=== PATIENT | female | born 1975 | race Hispanic/Latino ===

== ENCOUNTER 2016-08-08 06:10 | Emergency (ER) | payer OTHER ==
[2016-08-08 06:10] VITALS: BMI 40.7
[2016-08-08] MEDS ORDERED: guaiFENesin 200 mg/10 ml Syrup UD PO STA (07:06)
[2016-08-08] MEDS ORDERED: Sodium Chloride 0.9% 500 ML IV STA (07:07)
--- NOTE | 2016-08-08 07:12 | ED PDOC ---
Arrival/HPI - General Chief Complaint: Flu-like Symptoms Time Seen by Provider: 08/08/16 07:00 Historian: Patient - History of Present Illness Narrative History of Present Illness (Text): 08/08/16 07:09 A 40 year old female, whose past medical history includes hypertension, presents to the emergency department complaining of a cough and sore throat since last night. Patient took Robitussin and Tylenol, with no relief. Patient reports dry heaves and one episode of posttussive vomiting. Patietn denies any fever, chills, diarrhea, abdominal pain, chest pain, shortness of breath or any other complaints. PMD: Dr. Garcia Time/Duration: Other (Last night) Symptom Course: Unchanged Quality: Other Context: Home Past Medical History - Provider Review Nursing Documentation Reviewed: Yes - Infectious Disease Hx of Infectious Diseases: None - Tetanus Immunization Tetanus Immunization: Unknown - Cardiac Hx Hypertension: Yes Hx Pacemaker: No - Neurological Hx Paralysis: No - Hematological/Oncological Hx Blood Transfusions: Yes (1995) Hx Blood Transfusion Reaction: No - Musculoskeletal/Rheumatological Hx Musculoskeletal Disorders: No - Genitourinary/Gynecological Other/Comment: HPV - Psychiatric Hx Anxiety: Yes Hx Depression: No Hx Substance Use: No - Surgical History Other/Comment: ectopic -right fallopian tube removal - Anesthesia Hx Anesthesia: Yes Hx Anesthesia Reactions: No - Suicidal Assessment Feels Threatened In Home Enviroment: No Family/Social History - Physician Review Nursing Documentation Reviewed: Yes Family/Social History: No Known Family HX Smoking Status: Never Smoked Hx Alcohol Use: No Hx Substance Use: No Hx Substance Use Treatment: No Allergies/Home Meds Allergies/Adverse Reactions: Allergies house dust Allergy (Verified 08/08/16 06:22) CONGESTION pollen extracts Allergy (Verified 08/08/16 06:22) CONGESTION Review of Systems - Physician Review All systems were reviewed & negative as marked: Yes - Review of Systems Constitutional: absent: Fevers, Night Sweats ENT: Sore Throat Respiratory: Cough. absent: SOB Cardiovascular: absent: Chest Pain Gastrointestinal: Vomiting (1 episode of posttussive vomiting), Other (dry heaves). absent: Abdominal Pain, Diarrhea Physical Exam Vital Signs Reviewed: Yes Vital Signs Temp Pulse Resp BP Pulse Ox 08/08/16 08:00 99.2 F 72 18 114/76 100 08/08/16 06:22 98.4 F 89 18 141/89 99 Temperature: Afebrile Blood Pressure: Normal Pulse: Regular Respiratory Rate: Normal Appearance: Positive for: Well-Appearing, Non-Toxic, Comfortable Pain Distress: None Mental Status: Positive for: Alert and Oriented X 3 - Systems Exam Head: Present: Atraumatic, Normocephalic Pupils: Present: PERRL Extroacular Muscles: Present: EOMI Conjunctiva: Present: Normal Mouth: Present: Moist Mucous Membranes Pharnyx: Present: Normal. No: ERYTHEMA, EXUDATE, TONSILS ENLARGED, Peritonsilar Swelling, Uvular Deviation, Muffled/Hoarse Voice, Strider, Soft Palate/Uvular Edema Neck: Present: Normal Range of Motion. No: Lymphadenopathy Respiratory/Chest: Present: Clear to Auscultation, Good Air Exchange. No: Respiratory Distress, Accessory Muscle Use Cardiovascular: Present: Regular Rate and Rhythm, Normal S1, S2. No: Murmurs Abdomen: Present: Normal Bowel Sounds. No: Tenderness, Distention, Peritoneal Signs Upper Extremity: Present: Normal Inspection. No: Cyanosis, Edema Lower Extremity: Present: Normal Inspection. No: Edema Neurological: Present: GCS=15, CN II-XII Intact, Speech Normal Skin: Present: Warm, Dry, Normal Color. No: Rashes Psychiatric: Present: Alert, Oriented x 3, Normal Insight, Normal Concentration Medical Decision Making ED Course and Treatment: 08/08/16 07:09 Impression: A 40 year old female with cough, sore throat and dry heaves. Differential Diagnosis included but are not limited to: Bronchitis vs. URI, rule out PNA vs. Dehydration Plan: -- Chest xray -- Labs -- Robitussin, Zofran and IV fluids -- Reassess and disposition Progress Notes: Report Date : 08/08/2016 08:50:18 Procedure: Chest xray Dictator : Yasmeen Hernandez MD IMPRESSION: No active pulmonary disease. 08/08/16 10:11 On re-evaluation, patient feels better, states her symptoms have resolved and is in no acute distress. I have discussed the results and plan with the patient , who expresses understanding. Patient in agreement with plan to be discharged home. Patient is stable for discharge. Patient was instructed to follow up with physician or return if symptoms worsen or new concerning symptoms arise. - Lab Interpretations Lab Results: 08/08/16 09:50 06/15/17 07:07 Lab Results 08/08/16 09:50: WBC 10.1, RBC 4.10, Hgb 12.5, Hct 36.1, MCV 88.0, MCH 30.5, MCHC 34.6, RDW 12.3, Plt Count 240, MPV 8.5, Gran % 80.8 H, Lymph % (Auto) 12.4 L, [place] % (Auto) 6.1 H, Eos % (Auto) 0.6 L, Baso % (Auto) 0.1, Gran # 8.19 H, Lymph # 1.3, [place] # 0.6, Eos # 0.1, Baso # 0.01 08/08/16 07:07: Sodium 140, Potassium 4.0, Chloride 107, Carbon Dioxide 26, Anion Gap 11, BUN 12, Creatinine 0.8, Est GFR ( Amer) > 60, Est GFR (Non- Af Amer) > 60, Random Glucose 111 H, Calcium 8.7, Magnesium 1.8 I have reviewed the lab results: Yes - RAD Interpretation Radiology Orders: 08/08/16 07:06 CHEST TWO VIEWS (PA/LAT) [RAD] Stat - Medication Orders Current Medication Orders: Discontinued Medications Guaifenesin (Robitussin) 200 mg PO STAT STA Stop: 08/08/16 07:07 Last Admin: 08/08/16 07:12 Dose: 200 mg Sodium Chloride (Sodium Chloride 0.9%) 500 mls @ 999 mls/hr IV .Q31M STA Stop: 08/08/16 07:37 Last Admin: 08/08/16 07:12 Dose: 999 mls/hr Ketorolac Tromethamine (Toradol) 30 mg IVP STAT STA Stop: 08/08/16 09:56 Last Admin: 08/08/16 10:18 Dose: 30 mg Ondansetron HCl (Zofran Inj) 4 mg IVP STAT STA Stop: 08/08/16 07:07 Last Admin: 08/08/16 07:12 Dose: 4 mg - Scribe Statement The provider has reviewed the documentation as recorded by the Alieibadis Lind Provider Scribe Attestation: All medical record entries made by the Scribe were at my direction and personally dictated by me. I have reviewed the chart and agree that the record accurately reflects my personal performance of the history, physical exam, medical decision making, and the department course for this patient. I have also personally directed, reviewed, and agree with the discharge instructions and disposition. Disposition/Present on Arrival - Present on Arrival Any Indicators Present on Arrival: No History of DVT/PE: No History of Uncontrolled Diabetes: No Urinary Catheter: No History of Decub. Ulcer: No History Surgical Site Infection Following: None - Disposition Have Diagnosis and Disposition been Completed?: Yes Diagnosis: Acute pharyngitis, Bronchitis Disposition: HOME/ ROUTINE Disposition Time: 10:11 Patient Plan: Discharge Patient Problems: Current Active Problems Problem Status Onset Acute pharyngitis Acute Bronchitis Acute Condition: IMPROVED Discharge Instructions (ExitCare): Pharyngitis (ED), Acute Bronchitis (ED) Additional Instructions: Ms Kenneyd, thank you for letting us take care of you today. Your provider was Dr. Andersen. You were treated for Bronchitis, Pharyngitis. The emergency medical care you received today was directed at your acute symptoms. If you were prescribed any medication, please fill it and take as directed. It may take several days for your symptoms to resolve. Return to the Emergency Department if your symptoms worsen, do not improve, or if you have any other problems. Please contact your doctor or call one of the physicians/clinics you have been referred to that are listed on the Patient Visit Information form that is included in your discharge packet. Bring any paperwork you were given at discharge with you along with any medications you are taking to your follow up visit. Our treatment cannot replace ongoing medical care by a primary care provider (PCP) outside of the emergency department. Thank you for allowing the [facility] team to be part of your care today. If you had an X-Ray or CT scan: A Radiologist will review the ED reading if any change in treatment is needed we will contact you. If you had a blood, urine, or wound culture: It will take several days for the results, if any change in treatment is needed we will contact you. If you had an STI test: It will take 48 hours for the results. Please call after 1 week if you have not heard back. Prescriptions: guaiFENesin [Robitussin] 200 mg PO Q8 PRN #1 bottle PRN Reason: Cough Naproxen 500 mg PO BID PRN #30 tab PRN Reason: Pain, Moderate (4-7) Referrals: Jas Garcia MD [Primary Care Provider] - Follow up with primary Forms: [employer] ([place] Citizen), WORK NOTE
--- NOTE | 2016-08-08 08:51 | RAD ---
HISTORY: Cough r/o pna COMPARISON: 04/09/2013 TECHNIQUE: Chest PA and lateral FINDINGS: LUNGS: The lungs are well inflated and clear. There is linear atelectasis/scar in the left lower lobe. PLEURA: No significant pleural effusion identified. No pneumothorax apparent. CARDIOVASCULAR: Normal. OSSEOUS STRUCTURES: No significant abnormalities. VISUALIZED UPPER ABDOMEN: Normal. OTHER FINDINGS: None. IMPRESSION: No active pulmonary disease.
[2016-08-08 09:55] LABS: ADD MANUAL DIFF? NO; BASO # 0.01 K/mm3 (0.0-2.0); BASO % 0.1 % (0.0-3.0); EOS # 0.1 (0.0-0.7); EOS % 0.6 % (1.5-5.0); GRAN # 8.19 (1.4-6.5); GRAN % 80.8 % (50.0-68.0); HEMATOCRIT 36.1 % (36.0-48.0); LYMPH # 1.3 (1.2-3.4); LYMPH % 12.4 % (22.0-35.0); MEAN CORPUSCULAR HEMOGLOBIN 30.5 pg (25.0-35.0); MEAN CORPUSCULAR HGB CONC 34.6 g/dl (31.0-37.0); MEAN PLATELET VOLUME 8.5 fl (7.0-11.0); MONO # 0.6 (0.1-0.6); MONO % 6.1 % (1.0-6.0); PLATELET COUNT 240 10^3/uL (120.0-450.0); RED CELL DISTRIBUTION WIDTH 12.3 % (11.5-14.5); WHITE BLOOD COUNT 10.1 10^3/ul (4.5-11.0)
[2016-08-08 10:03] LABS: BLOOD UREA NITROGEN 12 mg/dL (7-21); CALCIUM 8.7 mg/dL (8.4-10.5); CARBON DIOXIDE 26 mmol/L (21-33); CHLORIDE 107 mmol/L (98-107); GFR AFRICAN-AMERICAN > 60; GLUCOSE,RANDOM 111 mg/dL (70-110); MAGNESIUM 1.8 mg/dL (1.7-2.2); SODIUM 140 mmol/L (132-148)
[2016-08-08 12:01] VITALS: O2SAT 99
[2016-08-08 12:02] VITALS: BP 143/76; PULSE 86; RESP 18; TEMP 99.3
== END 2016-08-08 12:08 | disposition home or self-care (01) ==
LOC: ED 06:10
DX: J02.9 Acute pharyngitis, unspecified (principal); J20.9 Acute bronchitis, unspecified
CPT/HCPCS: 71020; 80048; 83735; 85025; 96374; 96375; 99285; J1885; J2405; J7040

== ENCOUNTER 2017-05-19 17:17 | Emergency (ER) | payer BC, OTHER ==
[2017-05-19 17:25] VITALS: BMI 38.9
[2017-05-19 17:38] VITALS: RESP 18; TEMP 98.4; O2SAT 100
[2017-05-19] MEDS ORDERED: Albuterol 0.083% Inhal Sol (2.5 mg/3 mL) UD INH STA ×2 (17:57→18:35)
--- NOTE | 2017-05-19 18:04 | ED PDOC ---
Arrival/HPI - General Chief Complaint: Flu-like Symptoms Time Seen by Provider: 05/19/17 17:45 Historian: Patient - History of Present Illness Narrative History of Present Illness (Text): 05/19/17 17:59 41yo female with no PMhx present with 3days history of yellow productive cough, bodyaches and chest pain with cough. states she was around a colleague that was sick . she denies sore throat, nasal congestion, fever, chills, travel, Past Medical History - Provider Review Nursing Documentation Reviewed: Yes - Infectious Disease Hx of Infectious Diseases: None - Tetanus Immunization Tetanus Immunization: Unknown - Cardiac Hx Hypertension: Yes Hx Pacemaker: No - Pulmonary Hx Respiratory Disorders: No - Neurological Hx Paralysis: No - Endocrine/Metabolic Hx Endocrine Disorders: No - Hematological/Oncological Hx Blood Transfusions: Yes (1995) Hx Blood Transfusion Reaction: No - Musculoskeletal/Rheumatological Hx Musculoskeletal Disorders: No - Genitourinary/Gynecological Other/Comment: HPV - Psychiatric Hx Anxiety: Yes Hx Depression: No Hx Substance Use: No - Surgical History Other/Comment: ectopic -right fallopian tube removal - Anesthesia Hx Anesthesia: Yes Hx Anesthesia Reactions: No - Suicidal Assessment Feels Threatened In Home Enviroment: No Family/Social History - Physician Review Nursing Documentation Reviewed: Yes Family/Social History: Unknown Family HX Smoking Status: Never Smoked Hx Alcohol Use: No Hx Substance Use: No Hx Substance Use Treatment: No Allergies/Home Meds Allergies/Adverse Reactions: Allergies house dust Allergy (Verified 05/19/17 17:25) CONGESTION pollen extracts Allergy (Verified 05/19/17 17:25) CONGESTION Review of Systems - Physician Review All systems were reviewed & negative as marked: Yes - Review of Systems Constitutional: Normal Eyes: Normal ENT: Normal Respiratory: Normal Cardiovascular: Normal Gastrointestinal: Normal Genitourinary Female: Normal Musculoskeletal: Normal Skin: Normal Neurological: Normal Endocrine: Normal Hemo/Lymphatic: Normal Psychiatric: Normal Physical Exam Vital Signs Reviewed: Yes Vital Signs Temp Pulse Resp BP Pulse Ox 05/19/17 20:43 86 18 128/75 100 05/19/17 17:27 98.4 F 91 H 18 125/87 100 Temperature: Afebrile Blood Pressure: Normal Pulse: Regular Respiratory Rate: Normal Appearance: Positive for: Well-Appearing, Non-Toxic, Comfortable Pain Distress: None Mental Status: Positive for: Alert and Oriented X 3 - Systems Exam Head: Present: Atraumatic, Normocephalic Pupils: Present: PERRL Extroacular Muscles: Present: EOMI Conjunctiva: Present: Normal Mouth: Present: Moist Mucous Membranes Neck: Present: Normal Range of Motion Respiratory/Chest: Present: Clear to Auscultation, Good Air Exchange. No: Respiratory Distress, Accessory Muscle Use, Wheezes, Decreased Breath Sounds, Rales, Retracting, Rhonchi, Tender to Palpation Cardiovascular: Present: Regular Rate and Rhythm, Normal S1, S2. No: Murmurs Abdomen: Present: Normal Bowel Sounds. No: Tenderness, Distention, Peritoneal Signs Back: Present: Normal Inspection Upper Extremity: Present: Normal Inspection. No: Cyanosis, Edema Lower Extremity: Present: Normal Inspection. No: Edema Neurological: Present: GCS=15, CN II-XII Intact, Speech Normal Skin: Present: Warm, Dry, Normal Color. No: Rashes Psychiatric: Present: Alert, Oriented x 3, Normal Insight, Normal Concentration Medical Decision Making ED Course and Treatment: 05/20/17 01:22 PT was hemodynamically stable in ED. Her lung exam was benign. CXR NAD Rapid flu and strep was both negative Result was DW the pt and she was DC home with Zpack, albuterol and prometh with codeine. Referred to her PMD. - Lab Interpretations Lab Results: Lab Results 05/19/17 18:10: Influenza Typ A,B (EIA) Negative for flu a/b, Grp A Beta Strep Ag Negative - RAD Interpretation Radiology Orders: 05/19/17 17:45 CHEST TWO VIEWS (PA/LAT) [RAD] Stat - Medication Orders Current Medication Orders: Discontinued Medications Acetaminophen (Tylenol 325mg Tab) 975 mg PO STAT STA Stop: 05/19/17 17:57 Last Admin: 05/19/17 18:13 Dose: 975 mg Re-Assess: PARISA Pain/Vitals Document 05/19/17 19:13 HI (Rec: 05/19/17 19:49 HI [id number]) Pain Reassessment Is This A Pain ReAssessment? Yes Sleep Is patient sleeping during reassessment? Yes Albuterol Sulfate (Albuterol 0.083% Inhal Ángela (2.5 Mg/3 Ml) Ud) 2.5 mg INH STAT STA Stop: 05/19/17 17:58 Last Admin: 05/19/17 18:13 Dose: 2.5 mg Albuterol Sulfate (Albuterol 0.083% Inhal Ángela (2.5 Mg/3 Ml) Ud) 2.5 mg INH STAT STA Stop: 05/19/17 18:36 Last Admin: 05/19/17 19:49 Dose: 2.5 mg Azithromycin (Zithromax) 500 mg PO STAT STA PRN Reason: Protocol Stop: 05/19/17 19:25 Last Admin: 05/19/17 19:49 Dose: 500 mg Promethazine HCl/Dextromethorphan (Phenergan Dm Syrup) 5 ml PO Q6H STA Stop: 05/19/17 19:26 Last Admin: 05/19/17 19:49 Dose: 5 ml Disposition/Present on Arrival - Present on Arrival Any Indicators Present on Arrival: No History of DVT/PE: No History of Uncontrolled Diabetes: No Urinary Catheter: No History of Decub. Ulcer: No History Surgical Site Infection Following: None - Disposition Have Diagnosis and Disposition been Completed?: Yes Diagnosis: URI (upper respiratory infection) Disposition: HOME/ ROUTINE Disposition Time: 19:30 Patient Plan: Discharge Condition: STABLE Discharge Instructions (ExitCare): Viral Upper Respiratory Infection, Adult (DC ) Additional Instructions: Take medication as directed Follow up with your Doctor Return to ED for any new or worsening symptoms Prescriptions: Albuterol HFA [Ventolin HFA 90 mcg/actuation (8 g)] 2 puff IH [id number] #1 puff Azithromycin [Zithromax] 250 mg PO DAILY #4 tab Promethazine HCl/Codeine [Prometh-Codein 6.25-10 mg/5 ml] 5 ml PO Q6 #100 syrup Referrals: Jas Garcia MD [Primary Care Provider] - Follow up with primary Forms: [employer] ([place]), WORK NOTE
[2017-05-19 18:53] LABS: INFLUENZA A B NEGATIVE FOR FLU A/B (NEGATIVE)
[2017-05-19] MEDS ORDERED: Promethazine DM 6.25 mg-15 mg/5 ml Syrup PO STA (19:25)
[2017-05-19 20:48] VITALS: BP 128/75; PULSE 86
--- NOTE | 2017-05-20 08:24 | RAD ---
HISTORY: cough COMPARISON: 08/08/2016 TECHNIQUE: Chest PA and lateral FINDINGS: LUNGS: No active pulmonary disease. PLEURA: No significant pleural effusion identified. No pneumothorax apparent. CARDIOVASCULAR: Normal. OSSEOUS STRUCTURES: No significant abnormalities. VISUALIZED UPPER ABDOMEN: Normal. OTHER FINDINGS: None. IMPRESSION: No active disease.
== END 2017-05-19 20:10 | disposition home or self-care (01) ==
LOC: ED 17:17
DX: J06.9 Acute upper respiratory infection, unspecified (principal)

== ENCOUNTER 2017-11-21 21:02 | Emergency (ER) | payer OTHER ==
--- NOTE | 2017-11-21 21:19 | ED PDOC ---
Arrival/HPI - General Time Seen by Provider: 11/21/17 21:03 Historian: Patient - History of Present Illness Narrative History of Present Illness (Text): 11/21/17 21:18 Rosa Kennedy is a 42 year old female, whose past medical history includes hypertension, who presents to the Emergency Department complaining of pain to heel/plantar aspect of her left foot, radiating at times up to her left calf and posterior thigh. Patient was concerned due to her past history of DVT during and came in for further evaluation. Patient also complains of occasional cough. Patient denies any trauma, fever, chills, chest pain, shortness of breath, nausea, headache, dizziness, or any other complaints. Symptom Onset: Gradual Symptom Course: Unchanged Activities at Onset: Light Context: Home Past Medical History - Provider Review Nursing Documentation Reviewed: Yes - Infectious Disease Hx of Infectious Diseases: None - Tetanus Immunization Tetanus Immunization: Unknown - Cardiac Hx Hypertension: Yes Hx Pacemaker: No - Pulmonary Hx Respiratory Disorders: No - Neurological Hx Paralysis: No - Endocrine/Metabolic Hx Endocrine Disorders: No - Hematological/Oncological Hx Blood Transfusions: Yes (1995) Hx Blood Transfusion Reaction: No - Musculoskeletal/Rheumatological Hx Musculoskeletal Disorders: No - Genitourinary/Gynecological Other/Comment: HPV - Psychiatric Hx Anxiety: Yes Hx Depression: No Hx Substance Use: No - Surgical History Other/Comment: ectopic -right fallopian tube removal - Anesthesia Hx Anesthesia: Yes Hx Anesthesia Reactions: No - Suicidal Assessment Feels Threatened In Home Enviroment: No Family/Social History - Physician Review Nursing Documentation Reviewed: Yes Family/Social History: Unknown Family HX Smoking Status: Never Smoked Hx Alcohol Use: No Hx Substance Use: No Hx Substance Use Treatment: No Allergies/Home Meds Allergies/Adverse Reactions: Allergies house dust Allergy (Verified 05/19/17 17:25) CONGESTION pollen extracts Allergy (Verified 05/19/17 17:25) CONGESTION Review of Systems - Physician Review All systems were reviewed & negative as marked: Yes - Review of Systems Constitutional: Normal. absent: Fevers Eyes: Normal ENT: Normal Respiratory: Cough Cardiovascular: Normal. absent: Chest Pain Gastrointestinal: Normal. absent: Abdominal Pain, Diarrhea, Nausea, Vomiting Genitourinary Female: Normal. absent: Dysuria, Frequency, Hematuria, Urine Output Changes Musculoskeletal: Other (+left foot/calf pain). absent: Neck Pain Skin: Normal Neurological: Normal Endocrine: Normal Hemo/Lymphatic: Normal Psychiatric: Normal Physical Exam Vital Signs Reviewed: Yes Temperature: Afebrile Blood Pressure: Normal Pulse: Regular Respiratory Rate: Normal Appearance: Positive for: Well-Appearing, Non-Toxic, Comfortable Pain Distress: None Mental Status: Positive for: Alert and Oriented X 3 - Systems Exam Head: Present: Atraumatic, Normocephalic Pupils: Present: PERRL Extroacular Muscles: Present: EOMI Conjunctiva: Present: Normal Mouth: Present: Moist Mucous Membranes Neck: Present: Normal Range of Motion. No: Meningeal Signs, MIDLINE TENDERNESS, Paraspinal Tenderness Respiratory/Chest: Present: Clear to Auscultation, Good Air Exchange. No: Resp iratory Distress, Accessory Muscle Use Cardiovascular: Present: Regular Rate and Rhythm, Normal S1, S2. No: Murmurs Abdomen: No: Tenderness, Distention, Peritoneal Signs Back: Present: Normal Inspection. No: CVA Tenderness, Midline Tenderness, Paraspinal Tenderness Upper Extremity: Present: Normal Inspection. No: Cyanosis, Edema Lower Extremity: Present: Normal Inspection, NORMAL PULSES, Normal ROM, Neurovascularly Intact, Capillary Refill < 2 s. No: Edema, Renzo's Sign, Tenderness, Swelling, Erythema, Deformity, Temperature Abnormalties Neurological: Present: GCS=15, CN II-XII Intact, Speech Normal Skin: Present: Warm, Dry, Normal Color. No: Rashes Psychiatric: Present: Alert, Oriented x 3, Normal Insight, Normal Concentration Medical Decision Making ED Course and Treatment: 11/21/17 21:19 Impression: 42 year old female complaining of pain to left foot pain, radiating at times to left calf/posterior thigh, and occasional cough Plan: -- Labs -- Chest X-ray -- XR Left Foot -- US Duplex Lower Extremities -- Reassess and disposition Prior Visits: Notes and results from previous visits were reviewed. On 05/19/2017, pt was seen in the Emergency Department for productive cough, body aches, and chest pain with coughing. Pt was admitted to the hospital for further evaluation. Progress Notes: 11/21/17 23:41 US Duplex Lower Extremities negative for DVT. Reviewed radiology, XR Left Foot shows heel spur, negative for fracture. CXR reviewed, shows no acute processes. 11/22/17 23:50 On re-evaluation, patient feels better and is in no acute distress. I have discussed the results and plan with the patient, who expresses understanding. Patient in agreement with plan to be discharged home. Patient is stable for discharge. Patient was instructed to follow up with physician or return if symptoms worsen or new concerning symptoms arise. - Lab Interpretations I have reviewed the lab results: Yes - RAD Interpretation Devulcanizer Tender: ED Physician, Radiologist - Alieibadis Statement The provider has reviewed the documentation as recorded by the Alieibadis Novoa All medical record entries made by the Alieibadis were at my direction and personally dictated by me. I have reviewed the chart and agree that the record accurately reflects my personal performance of the history, physical exam, medical decision making, and the department course for this patient. I have also personally directed, reviewed, and agree with the discharge instructions and disposition. Disposition/Present on Arrival - Present on Arrival Any Indicators Present on Arrival: No History of DVT/PE: No History of Uncontrolled Diabetes: No Urinary Catheter: No History Surgical Site Infection Following: None - Disposition Have Diagnosis and Disposition been Completed?: Yes Diagnosis: Heel spur, Plantar fasciitis Disposition: HOME/ ROUTINE Disposition Time: 23:54 Patient Plan: Discharge Patient Problems: Current Active Problems Problem Status Onset Heel spur Acute Plantar fasciitis Acute Condition: GOOD Discharge Instructions (ExitCare): Heel Pain (Caused by Plantar Fasciitis) (DC), Heel Spurs (DC) Additional Instructions: Wear good arch support shoes/avoid prolonged standing/take meds as prescribed/follow up with the chiller tender this week Prescriptions: Naproxen [Naprosyn] 500 mg PO BID PRN #14 tab PRN Reason: Pain Referrals: Jas Garcia MD [Primary Care Provider] - Follow up with primary Hunter Mejía MD [Doctor [facility]] - Follow up with primary
[2017-11-21 21:53] VITALS: BMI 37.2
[2017-11-21 21:57] VITALS: RESP 18; TEMP 98.2
[2017-11-21 22:36] LABS: HEMOGLOBIN 12.4 g/dL (12.0-16.0); MEAN CELL VOLUME 88.4 fl (80.0-105.0); MEAN CORPUSCULAR HGB CONC 33.9 g/dl (31.0-37.0); MEAN PLATELET VOLUME 8.9 fl (7.0-11.0); RBC 4.14 10^6/uL (3.5-6.1); RED CELL DISTRIBUTION WIDTH 12.3 % (11.5-14.5); WHITE BLOOD COUNT 9.6 10^3/ul (4.5-11.0)
[2017-11-21 22:47] LABS: ALB/GLOB RATIO 1.2 (1.1-1.8); ALBUMIN 4.4 g/dL (3.0-4.8); ALT/SGPT 27 U/L (7-56); AST/SGOT 26 U/L (14-36); BLOOD UREA NITROGEN 12 mg/dL (7-21); CALCIUM 9.2 mg/dL (8.4-10.5); GFR NON-AFRICAN AMERICAN > 60
[2017-11-21 23:25] VITALS: BP 123/59; PULSE 67; O2SAT 100
--- NOTE | 2017-11-22 13:28 | RAD ---
Date of service: 11/21/2017 HISTORY: Cough. COMPARISON: 05/19/2017. TECHNIQUE: Chest PA and lateral FINDINGS: LUNGS: No active pulmonary disease. PLEURA: No significant pleural effusion identified. No pneumothorax apparent. CARDIOVASCULAR: Normal. OSSEOUS STRUCTURES: No significant abnormalities. VISUALIZED UPPER ABDOMEN: Normal. OTHER FINDINGS: None. IMPRESSION: No active disease. No significant interval change compared to the prior examination(s).
--- NOTE | 2017-11-23 16:11 | US ---
HISTORY: Leg pain and swelling. Evaluate for DVT PHYSICIAN(S): Ruel Ibrahim MD. TECHNIQUE: Duplex sonography and color-flow Doppler with graded compression were used to evaluate the deep venous systems of both lower extremities. FINDINGS: The visualized deep venous systems of both lower extremities are sonographically normal and compressible. Normal wave forms and augmentation are seen. There is no sonographic evidence for deep venous thrombosis in the visualized segments of both lower extremities. IMPRESSION: No sonographic evidence for deep venous thrombosis in the visualized segments of both lower extremities.
== END 2017-11-22 00:29 | disposition home or self-care (01) ==
LOC: ED 21:02
DX: M72.2 Plantar fascial fibromatosis (principal); M77.32 Calcaneal spur, left foot; I10 Essential (primary) hypertension

== ENCOUNTER 2017-12-30 13:19 | Emergency (ER) | payer OTHER ==
[2017-12-30 13:48] VITALS: RESP 18; BMI 38.9
[2017-12-30] MEDS ORDERED: Albuterol-Ipratrop 3 mg / 0.5 (3 ml) UD ONE (13:54)
[2017-12-30] MEDS ORDERED: Albuterol-Ipratrop 3 mg / 0.5 (3 ml) UD IH STA (13:59)
[2017-12-30] MEDS ORDERED: Promethazine/Cod 6.25mg-10mg/5ml Syr UD PO STA (13:59)
--- NOTE | 2017-12-30 14:55 | RAD ---
Date of service: 12/30/2017 HISTORY: cough COMPARISON: 11/21/2017 TECHNIQUE: Chest PA and lateral FINDINGS: LUNGS: No active pulmonary disease. PLEURA: No significant pleural effusion identified. No pneumothorax apparent. CARDIOVASCULAR: No aortic atherosclerotic calcification present. Normal cardiac size. No pulmonary vascular congestion. OSSEOUS STRUCTURES: No significant abnormalities. VISUALIZED UPPER ABDOMEN: Normal. OTHER FINDINGS: None. IMPRESSION: No active disease.
--- NOTE | 2017-12-30 14:58 | ED PDOC ---
Arrival/HPI - General Chief Complaint: Cough, Cold, Congestion Time Seen by Provider: 12/30/17 13:20 Historian: Patient - History of Present Illness Narrative History of Present Illness (Text): 12/30/17 13:59 42 year old female whose past medical history includes hypertension, presents to the emergency department complaining of cough, for the past 2 days. She reports her cough is productive with green sputum. Patient states she made an appointment with her PMD for the presenting complaint, however the cough is persistent prompting her visit to the emergency department for further evaluation. She denies fevers, chills, headache, dizziness, chest pain, shortness of breath, dyspnea on exertion, abdominal pain, nausea, vomiting, diarrhea, back pain, neck pain, or any other complaint. Time/Duration: < week Symptom Course: Unchanged Activities at Onset: Light Context: Home Past Medical History - Provider Review Nursing Documentation Reviewed: Yes - Infectious Disease Hx of Infectious Diseases: None - Tetanus Immunization Tetanus Immunization: Unknown - Cardiac Hx Cardiac Disorders: Yes Hx Hypertension: Yes - Pulmonary Hx Respiratory Disorders: No - Neurological Hx Neurological Disorder: No - HEENT Hx HEENT Disorder: No - Renal Hx Renal Disorder: No - Endocrine/Metabolic Hx Endocrine Disorders: No - Hematological/Oncological Hx Blood Disorders: Yes Hx Blood Transfusions: Yes (1995) - Integumentary Hx Dermatological Disorder: No - Musculoskeletal/Rheumatological Hx Musculoskeletal Disorders: No - Gastrointestinal Hx Gastrointestinal Disorders: No - Genitourinary/Gynecological Hx Genitourinary Disorders: Yes Other/Comment: HPV - Psychiatric Hx Psychophysiologic Disorder: Yes Hx Anxiety: Yes Hx Substance Use: No - Surgical History Other/Comment: ectopic -right fallopian tube removal - Anesthesia Hx Anesthesia: Yes Hx Anesthesia Reactions: No - Suicidal Assessment Feels Threatened In Home Enviroment: No Family/Social History - Physician Review Nursing Documentation Reviewed: Yes Family/Social History: Unknown Family HX Smoking Status: Never Smoked Hx Alcohol Use: No Hx Substance Use: No Hx Substance Use Treatment: No Allergies/Home Meds Allergies/Adverse Reactions: Allergies house dust Allergy (Verified 12/30/17 13:42) CONGESTION pollen extracts Allergy (Verified 12/30/17 13:42) CONGESTION Review of Systems - Review of Systems Constitutional: absent: Fevers Eyes: absent: Vision Changes Respiratory: Cough, Sputum (green sputum) Cardiovascular: absent: Chest Pain Gastrointestinal: absent: Abdominal Pain, Diarrhea, Nausea, Vomiting Genitourinary Female: absent: Dysuria Musculoskeletal: absent: Back Pain, Neck Pain Skin: absent: Rash Neurological: absent: Headache, Dizziness Psychiatric: absent: Anxiety Physical Exam Vital Signs Reviewed: Yes Vital Signs Temp Pulse Resp BP Pulse Ox 12/30/17 13:41 98.3 F 79 18 125/85 98 Temperature: Afebrile Blood Pressure: Normal Pulse: Regular Respiratory Rate: Normal Appearance: Positive for: Well-Appearing, Non-Toxic, Comfortable Pain Distress: None Mental Status: Positive for: Alert and Oriented X 3 - Systems Exam Head: Present: Atraumatic, Normocephalic Pupils: Present: PERRL Extroacular Muscles: Present: EOMI Conjunctiva: Present: Normal Mouth: Present: Moist Mucous Membranes Neck: Present: Normal Range of Motion Respiratory/Chest: Present: Other (cough on exam) Cardiovascular: Present: Regular Rate and Rhythm, Normal S1, S2. No: Murmurs Abdomen: No: Tenderness, Distention, Peritoneal Signs Back: Present: Normal Inspection Upper Extremity: Present: Normal Inspection. No: Cyanosis, Edema Lower Extremity: Present: Normal Inspection. No: Edema Neurological: Present: GCS=15, CN II-XII Intact, Speech Normal Skin: Present: Warm, Dry, Normal Color. No: Rashes Psychiatric: Present: Alert, Oriented x 3, Normal Insight, Normal Concentration Medical Decision Making ED Course and Treatment: 12/30/17 15:04 Impression: 42 year old female who presents to the emergency department complaining of cough for the past two days. Plan: -- PA/ LAT Chest X-Ray -- Reassess and disposition Prior Visits: Notes and results from previous visits were reviewed. Progress Notes: 12/30/17 15:04 Chest X-ray reviewed, shows: IMPRESSION: No active disease. 12/30/17 15:43 Discharged with medrol dose pack and cough medication. Lungs cta b/l. Instructed to follow-up with PMD - RAD Interpretation Radiology Orders: 12/30/17 13:56 CHEST TWO VIEWS (PA/LAT) [RAD] Stat - Medication Orders Current Medication Orders: Discontinued Medications Albuterol/Ipratropium (Duoneb 3 Mg/0.5 Mg (3 Ml) Ud) 3 ml IH STAT STA Stop: 12/30/17 14:00 Last Admin: 12/30/17 13:59 Dose: 3 ml Promethazine HCl/Codeine (Phenergan/Codeine Oral Syrup) 5 ml PO STAT STA Stop: 12/30/17 14:00 Last Admin: 12/30/17 14:20 Dose: 5 ml - Scribe Statement The provider has reviewed the documentation as recorded by the Janell Hong Provider Scribe Attestation: All medical record entries made by the Alieibadis were at my direction and personally dictated by me. I have reviewed the chart and agree that the record accurately reflects my personal performance of the history, physical exam, medical decision making, and the department course for this patient. I have also personally directed, reviewed, and agree with the discharge instructions and disposition. Disposition/Present on Arrival - Present on Arrival Any Indicators Present on Arrival: No History of DVT/PE: No History of Uncontrolled Diabetes: No Urinary Catheter: No History of Decub. Ulcer: No History Surgical Site Infection Following: None - Disposition Have Diagnosis and Disposition been Completed?: Yes Diagnosis: Cough Disposition: HOME/ ROUTINE Disposition Time: 15:05 Patient Plan: Discharge Patient Problems: Current Active Problems Problem Status Onset Cough Acute Condition: GOOD Discharge Instructions (ExitCare): Cough in Adults Additional Instructions: Follow-up with PMD within 2 days. Use nebulizer as needed. Return to ED if condition worsens. Take cough medication as needed. Rest and copious fluids. Prescriptions: Methylprednisolone [Medrol Dose Pack (21 tabs)] 4 mg PO DAILY #21 mg Promethazine/Codeine [Codeine/Promethazine 10 MG/5 Ml-6.25 MG/5 Ml] 5 ml PO Q6 PRN #100 ml PRN Reason: Cough Forms: [facility] ([place]), WORK NOTE
[2017-12-31] VITALS: BP 120/68; PULSE 72; TEMP 98.2; O2SAT 100
== END 2017-12-30 15:15 | disposition home or self-care (01) ==
LOC: ED 13:19
DX: R05 Cough (principal)

== ENCOUNTER 2018-05-05 13:24 | Outpatient (CLI) | payer OTHER | END 2018-05-05 13:25 | disposition home or self-care (01) | LOC: LAB 13:24 ==